=== PATIENT | female | born 1970 | race Caucasian/White ===

== ENCOUNTER 2018-05-07 06:31 | Day surgery (SDC) | payer BC ==
[2018-05-07] MEDS ORDERED: MIDAZOLAM 1 MG/ML 2 ML INJ (07:54)
[2018-05-07] MEDS ORDERED: SOD CHLORIDE 0.9% 1,000 ML IV (08:30)
== END 2018-05-07 09:26 | disposition home or self-care (01) ==
LOC: CCL 06:31 → SDS 06:31 → CCL 09:26
DX: R55 Syncope and collapse (principal); I48.91 Unspecified atrial fibrillation; Z79.82 Long term (current) use of aspirin
CPT/HCPCS: 33282; 84703; 93005

== ENCOUNTER 2019-02-22 11:34 | Day surgery (SDC) | payer BC ==
[2019-02-22] MEDS ORDERED: MIDAZOLAM 1 MG/ML 2 ML INJ (13:16)
[2019-02-22] MEDS ORDERED: PROPOFOL 40 ML (13:16)
[2019-02-22] MEDS ORDERED: LIDOCAINE 2% (SDV) 5 ML INJ (13:16)
[2019-02-22] MEDS ORDERED: ESMOLOL 10 ML (13:27)
== END 2019-02-22 15:41 | disposition home or self-care (01) ==
LOC: GIL 11:34
DX: Z86.010 Personal history of colon polyps (principal); I10 Essential (primary) hypertension; Z83.71 Family history of colonic polyps
CPT/HCPCS: 45378; 84703